=== PATIENT | male | born 1955 | race Caucasian/White ===

== ENCOUNTER → 2016-06-08 | Day surgery (SDC) | payer OTHER ==
[~2016-06-08] MED LIST: COLACE100 MG PO; NORCO 5-325 TA1 EACH PO; XARELTO10 MG PO
== END | disposition home or self-care (01) ==
LOC: FAS 10:06
DX: Z12.11 Encounter for screening for malignant neoplasm of colon (principal); D12.6 Benign neoplasm of colon, unspecified; F41.9 Anxiety disorder, unspecified; K21.9 Gastro-esophageal reflux disease without esophagitis; E78.5 Hyperlipidemia, unspecified; Z86.010 Personal history of colon polyps; M19.90 Unspecified osteoarthritis, unspecified site; Z88.5 Allergy status to narcotic agent; Z87.891 Personal history of nicotine dependence; Z83.3 Family history of diabetes mellitus; Z83.49 Family history of other endocrine, nutritional and metabolic diseases; Z82.49 Family history of ischemic heart disease and other diseases of the circulatory system; Z79.899 Other long term (current) drug therapy; Z98.890 Other specified postprocedural states
CPT/HCPCS: 88305; J2704

== ENCOUNTER → 2020-03-21 | Day surgery (SDC) | payer MEDICARE, OTHER ==
[~2020-03-21] MED LIST changes: +ACETAMINOPHEN500 M1 PO; +CARAFATE1 GM PO; +CYMBALTA60 MG PO; +DULOXETINE HCL30 MG PO; +LIDOCAINE30 G1 TOP; +MELOXICAM15 MG PO; +MOTRIN600 MG PO; +NORCO 5/3251 EACH PO; +ONDANSETRON ODT4 MG PO; +PEPCID AC20 MG PO; +PRAVACHOL40 MG PO; +STERIOD; +ULTRAM50 MG PO
== END | disposition home or self-care (01) ==
LOC: FAS 07:20
DX: Z09 Encounter for follow-up examination after completed treatment for conditions other than malignant neoplasm (principal); K64.1 Second degree hemorrhoids; E78.00 Pure hypercholesterolemia, unspecified; F41.9 Anxiety disorder, unspecified; K59.00 Constipation, unspecified; Z86.010 Personal history of colon polyps; Z87.891 Personal history of nicotine dependence; Z20.828 Contact with and (suspected) exposure to other viral communicable diseases
CPT/HCPCS: J2704; J7120

== ENCOUNTER → 2020-04-15 | Day surgery (SDC) | payer MEDICARE, OTHER | END | disposition home or self-care (01) | LOC: FAS 06:40 | DX: C34.12 Malignant neoplasm of upper lobe, left bronchus or lung (principal); F41.9 Anxiety disorder, unspecified; M19.90 Unspecified osteoarthritis, unspecified site; N40.0 Benign prostatic hyperplasia without lower urinary tract symptoms; E78.00 Pure hypercholesterolemia, unspecified; E78.5 Hyperlipidemia, unspecified; G47.30 Sleep apnea, unspecified; Z86.010 Personal history of colon polyps; Z87.891 Personal history of nicotine dependence; Z79.1 Long term (current) use of non-steroidal anti-inflammatories (NSAID); Z79.899 Other long term (current) drug therapy; Z88.5 Allergy status to narcotic agent | CPT/HCPCS: 71045; 76000; 77001; C1788; J0690; J1644; J2001; J2250; J2704; J3010; J7120 ==

== ENCOUNTER 2020-06-21 10:29 | Emergency (ER) | payer MEDICARE, OTHER ==
[~2020-06-21 10:29] MED LIST changes: -CARAFATE1 GM PO; -NORCO 5/3251 EACH PO; -ONDANSETRON ODT4 MG PO; -PEPCID AC20 MG PO
[2020-06-21 11:23] LABS: BASOPHIL 0.5 % (0-2); EOSINOPHIL 0 % (0-7); LYMPHOCYTE 8.9 % (15-48); MCH 32.7 pg (25.0-31.0); MCHC 35.1 g/dL (32.0-36.0); MONOCYTE 15.3 % (0-12); MPV 9.4 fL (6.0-9.5); NEUTROPHIL 73.8 % (41-80); NRBC 0; PLT 134 K/uL (150-400); RBC 3.98 M/uL (4.70-6.00); RDW 15.1 % (11.5-14.0)
[2020-06-21 11:30] LABS: D-DIMER 1.85 ug/mLFEU (0.00-0.41)
[2020-06-21 11:31] LABS: INR 1.02 (0.9-1.2); PROTHROMBIN TIME 12.7 SECONDS (11.4-13.6); PTT 25.9 SECONDS (22.2-34.7)
[2020-06-21 11:44] LABS: LACTIC ACID 2.3 mmol/L (0.4-1.9)
[2020-06-21 11:47] LABS: ALBUMIN 3.8 g/dL (3.4-5.0); BILIRUBIN - TOTAL 0.9 mg/dL (0.2-1.0); BUN/CREAT RATIO (CALC) 16.7 RATIO; CREATININE 1.14 mg/dL (0.67-1.17); GLOBULIN (CALCULATION) 2.7 g/dL; POTASSIUM 4.2 mmol/L (3.5-5.1); TOTAL PROTEIN 6.5 g/dL (6.4-8.2)
[2020-06-21 12:10] LABS: PRO-BNP 726 pg/mL (<125)
[2020-06-21 12:35] LABS: BILIRUBIN NEGATIVE (NEGATIVE); BLOOD TRACE-INTACT Ery/uL (NEGATIVE); CLARITY CLEAR (CLEAR); COLOR YELLOW (YELLOW); GLUCOSE (U) NORMAL (NORMAL); LEUKOCYTES NEGATIVE Leu/uL (NEGATIVE); NITRITE NEGATIVE (NEGATIVE); PROTEIN NEGATIVE (NEGATIVE); SPECIFIC GRAVITY 1.025 (1.001-1.030); UROBILINOGEN 0.2 mg/dL (0.2-1.0); pH 5.5 (5.0-9.0)
[2020-06-21 12:42] LABS: URINARY RBC RARE; URINARY WBC RARE
[2020-06-21] MEDS ORDERED: PEPCID AC20 MG PO (13:49)
[2020-06-21] MEDS ORDERED: CARAFATE1 GM PO (13:49)
[2020-06-21] MEDS ORDERED: ONDANSETRON ODT4 MG PO (13:49)
[2020-10-08] MEDS ORDERED: NORCO 5/3251 EACH PO (18:00)
[2020-10-08] MEDS ORDERED: DULOXETINE HCL30 MG PO (18:00)
== END 2020-06-21 14:43 | disposition home or self-care (01) ==
LOC: FER 10:29
PROVIDERS: Emergency Medicine
DX: R06.02 Shortness of breath (principal); R11.2 Nausea with vomiting, unspecified; I10 Essential (primary) hypertension; N40.0 Benign prostatic hyperplasia without lower urinary tract symptoms; G47.33 Obstructive sleep apnea (adult) (pediatric); E66.9 Obesity, unspecified; Z99.89 Dependence on other enabling machines and devices; Z85.118 Personal history of other malignant neoplasm of bronchus and lung; Z87.39 Personal history of other diseases of the musculoskeletal system and connective tissue; Z86.79 Personal history of other diseases of the circulatory system; Z99.81 Dependence on supplemental oxygen; Z88.5 Allergy status to narcotic agent; Z87.19 Personal history of other diseases of the digestive system; Z20.822 Contact with and (suspected) exposure to COVID-19
CPT/HCPCS: 36415; 36600; 71045; 71275; 80053; 81001; 82803; 83605; 83880; 84484; 85025; 85379; 85610; 85730; 87040; 87088; 93005; J2405; J7030; Q9967; U0002

== ENCOUNTER 2021-02-23 09:01 | Emergency (ER) | payer MEDICARE, OTHER | END 2021-02-23 11:34 | disposition home or self-care (01) | LOC: FER 09:01 | DX: J20.9 Acute bronchitis, unspecified (principal); Z88.5 Allergy status to narcotic agent ==

== ENCOUNTER 2021-07-10 22:41 | Emergency (ER) | payer MEDICARE ==
[~2021-07-10 22:41] MED LIST changes: +CARAFATE1 GM PO; +MUCINEX D TABL1 EACH PO; +NORCO 5/3251 EACH PO; +ONDANSETRON ODT4 MG PO; +PEPCID AC20 MG PO; +VENTOLIN HFA18 GM INH; +VIBRAMYCIN100 MG PO
[2021-07-11 01:14] LABS: BASOPHIL 0.3 % (0-2); EOSINOPHIL 1.1 % (0-7); HCT 38.3 % (42.0-52.0); HGB 12.7 g/dl (13.2-18.0); MCH 34.4 pg (25.0-31.0); MCHC 33.2 g/dL (32.0-36.0); MCV 103.8 fL (78.0-100.0); MONOCYTE 8.7 % (0-12); MPV 9.5 fL (6.0-9.5); NEUTROPHIL 78.4 % (41-80); NRBC 0; PLT 183 K/uL (150-400); RBC 3.69 M/uL (4.70-6.00); RDW 15.5 % (11.5-14.0); WBC 9.9 K/uL (4.0-10.5)
[2021-07-11 01:29] LABS: ALBUMIN 3.8 g/dL (3.4-5.0); ALKALINE PHOSHATASE 87 U/L (46-116); ALT 27 U/L (16-63); AST 18 U/L (15-37); BILIRUBIN - TOTAL 0.6 mg/dL (0.2-1.0); BUN 17 mg/dL (7-18); BUN/CREAT RATIO (CALC) 15.3 RATIO; CHLORIDE 103 mmol/L (98-107); CO2 (BICARBONATE) 27 mmol/L (21-32); CREATININE 1.11 mg/dL (0.67-1.17); GLOBULIN (CALCULATION) 3.4 g/dL; GLUCOSE 97 mg/dL (74-106); TOTAL PROTEIN 7.2 g/dL (6.4-8.2)
[2021-07-11 01:30] LABS: C-REACTIVE PROTEIN < 0.20 mg/dL (<=0.90)
[2021-07-11 01:32] LABS: LACTIC ACID 0.9 mmol/L (0.4-1.9)
[2021-07-11 02:32] LABS: BILIRUBIN NEGATIVE (NEGATIVE); BLOOD NEGATIVE Ery/uL (NEGATIVE); CLARITY CLEAR (CLEAR); COLOR YELLOW (YELLOW); GLUCOSE (U) NORMAL (NORMAL); LEUKOCYTES NEGATIVE Leu/uL (NEGATIVE); NITRITE NEGATIVE (NEGATIVE); PROTEIN NEGATIVE (NEGATIVE); SPECIFIC GRAVITY 1.025 (1.001-1.030); UROBILINOGEN 0.2 mg/dL (0.2-1.0); pH 5.5 (5.0-9.0)
== END 2021-07-11 03:46 | disposition home or self-care (01) ==
LOC: FER 22:41
PROVIDERS: Emergency Medicine
DX: R10.31 Right lower quadrant pain (principal); R11.0 Nausea; Z88.5 Allergy status to narcotic agent; Z87.891 Personal history of nicotine dependence
CPT/HCPCS: 36415; 80053; 81003; 83605; 85025; 86140; 87040; J1170; J7030; Q9967